=== PATIENT | female | born 1985 | race Caucasian/White ===

== ENCOUNTER 2020-03-26 11:13 | Emergency (ER) | payer BC, OTHER ==
--- NOTE | 2020-03-26 12:36 | EDM.PDOC ---
ED HPI GENERAL MEDICAL PROBLEM - General Chief Complaint: Gastrointestinal Problem Stated Complaint: SICK TO STOMACH Time Seen by Provider: 03/26/20 11:47 Source of Information: Reports: Patient History Limitations: Reports: No Limitations - History of Present Illness INITIAL COMMENTS - FREE TEXT/NARRATIVE: Patient is a 34-year-old female who is G5, P3, 27 weeks and 5 days gestation, who presents to the emergency department with complaints of feeling "queasy "and having intermittent abdominal cramping and diarrhea for the last week. She states she has had symptoms similar to this off and on throughout her , however over the last week it has worsened. She states that anytime she eats, approximate 45 minutes later she will have abdominal cramping followed by a large loose bowel movement. After she has a bowel movement she "feels great ". She states that she has been more gassy than normal and belches frequently. She has not had any vomiting, however states that any pressure on her abdomen makes her feel nauseous. This is also been fairly consistent through her but somewhat worse over the last week. She denies any abdominal pain, fever, or chills. She also complains of itching to the palms of her hands and soles of her feet, however has no rash to the area. Patient's HEEL BREASTER is in [place]. She states that she called and spoke with her and they recommended that she come to the ER. She states they were concerned that it could be her gallbladder or her liver causing the symptoms. She plans to return to [place] next week, h hernando states that she could return sooner if needed. She has had no uterine cramping or vaginal bleeding, or abnormal discharge. Denies burning with urination. activity has been normal. Patient states that she does have a history of anemia. She had a miscarriage back in August and got for shortly thereafter. States that her hemoglobin at one time was 7.1. She has not seen her HEEL BREASTER for 11 weeks due to the COVID pandemic, however in her last visit was 11. She has been unable to take a vitamin or iron supplements consistently due to intolerance. She states that she feels that her hemoglobin is probably little low as she has been more tired lately. Feet Pain Score (Numeric/FACES): 3 - Related Data Allergies Allergy/AdvReac Type Severity Reaction Status Date / Time No Known Allergies Allergy Verified 03/26/20 11:22 Home Meds: Home Meds Iron 1 tab PO DAILY 03/26/20 [History] Vits #93/Iron Fum/FA [ Formula Tablet] 1 tab PO DAILY 03/26/20 [History] Past Medical History HEENT History: Reports: Impaired Vision Cardiovascular History: Reports: None Respiratory History: Reports: None Gastrointestinal History: Reports: None Genitourinary History: Reports: None HEEL BREASTER History: Reports: Other HEEL BREASTER History: 27w 5d Musculoskeletal History: Reports: None Neurological History: Reports: None Psychiatric History: Reports: None Endocrine/Metabolic History: Reports: None Hematologic History: Reports: None Immunologic History: Reports: None Oncologic (Cancer) History: Reports: None Dermatologic History: Reports: None - Infectious Disease History Infectious Disease History: Reports: None - Past Surgical History Head Surgeries/Procedures: Reports: None HEENT Surgical History: Reports: Oral Surgery GI Surgical History: Reports: None Social & Family History - Family History HEENT: Reports: None Cardiac: Reports: None Respiratory: Reports: None GI: Reports: None : Reports: None OBGYN: Reports: None Musculoskeletal: Reports: None Neurological: Reports: None Psychiatric: Reports: Depression Endocrine/Metabolic: Reports: Diabetes, type II Hematologic: Reports: None Immunologic: Reports: None Oncologic: Reports: Leukemia, Skin - Tobacco Use Smoking Status *Q: Never Smoker - Caffeine Use Caffeine Use: Reports: Coffee, Soda - Recreational Drug Use Recreational Drug Use: No ED ROS GENERAL - Review of Systems Review Of Systems: See Below Constitutional: Reports: Fatigue. Denies: Fever, Chills, Weakness, Decreased Appetite HEENT: Reports: No Symptoms ED EXAM, GI/ABD - Physical Exam Exam: See Below Exam Limited By: No Limitations General Appearance: Alert, WD/WN, No Apparent Distress Respiratory/Chest: No Respiratory Distress, Lungs Clear, Normal Breath Sounds, No Accessory Muscle Use, Chest Non-Tender Cardiovascular: Normal Peripheral Pulses, Regular Rate, Rhythm, No Edema, No Gallop, No JVD, No Murmur, No Rub GI/Abdominal Exam: Normal Bowel Sounds, Soft, Non-Tender, No Organomegaly, No Distention, No Abnormal Bruit, No Mass, Pelvis Stable (Female) Exam: Fundal Height (U-2), Other (FHT 140) Neurological: Alert, Oriented, CN II-XII Intact, Normal Cognition, Normal Gait, Normal Reflexes, No Motor/Sensory Deficits Psychiatric: Normal Affect, Normal Mood Skin Exam: Warm, Dry, Intact, Normal Color, No Rash Course - Vital Signs Last Recorded V/S: Last Vital Signs Temp 97.7 F 03/26/20 11:22 Pulse 101 H 03/26/20 11:22 Resp 16 03/26/20 11:22 BP 134/89 03/26/20 11:22 Pulse Ox 98 03/26/20 11:22 - Orders/Labs/Meds Orders: Active Orders 24 hr Category Date Time Status Heart Tones [RC] ASDIRECTED Care 03/26/20 15:13 Active Labs: Laboratory Tests 03/26/20 03/26/20 03/26/20 Range/Units 12:14 12:14 12:25 WBC 7.68 (3.98-10.04) K/mm3 RBC 3.69 L (3.98-5.22) M/mm3 Hgb 10.6 L (11.2-15.7) gm/dl Hct 33.1 L (34.1-44.9) % MCV 89.7 (79.4-94.8) fl MCH 28.7 (25.6-32.2) pg MCHC 32.0 L (32.2-35.5) g/dl RDW Std Deviation 46.9 H (36.4-46.3) fL Plt Count 222 (182-369) K/mm3 MPV 10.1 (9.4-12.3) fl Neut % (Auto) 73.7 H (34.0-71.1) % Lymph % (Auto) 18.2 L (19.3-51.7) % [place] % (Auto) 7.4 (4.7-12.5) % Eos % (Auto) 0.3 L (0.7-5.8) Baso % (Auto) 0.1 (0.1-1.2) % Neut # (Auto) 5.66 (1.56-6.13) K/mm3 Lymph # (Auto) 1.40 (1.18-3.74) K/mm3 [place] # (Auto) 0.57 H (0.24-0.36) K/mm3 Eos # (Auto) 0.02 L (0.04-0.36) K/mm3 Baso # (Auto) 0.01 (0.01-0.08) K/mm3 Sodium 137 (136-145) mEq/L Potassium 3.5 (3.5-5.1) mEq/L Chloride 103 (98-107) mEq/L Carbon Dioxide 22 (21-32) mEq/L Anion Gap 15.5 H (5-15) BUN 6 L (7-18) mg/dL Creatinine 0.6 (0.55-1.02) mg/dL Est Cr Clr Drug Dosing 117.76 mL/min Estimated GFR (MDRD) > 60 (>60) mL/min BUN/Creatinine Ratio 10.0 L (14-18) Glucose 95 (74-106) mg/dL Calcium 8.3 L (8.5-10.1) mg/dL Total Bilirubin 0.3 (0.2-1.0) mg/dL AST 21 (15-37) U/L ALT 31 (14-59) U/L Alkaline Phosphatase 80 (46-116) U/L C-Reactive Protein 1.4 H* (<1.0) mg/dL Total Protein 6.8 (6.4-8.2) g/dl Albumin 2.8 L (3.4-5.0) g/dl Globulin 4.0 gm/dL Albumin/Globulin Ratio 0.7 L (1-2) Amylase 37 (25-115) U/L Lipase 84 (73-393) U/L Urine Color Light yellow (Yellow) Urine Appearance Clear (Clear) Urine pH 6.0 (5.0-8.0) Ur Specific [place] 1.020 (1.005-1.030) Urine Protein Negative (Negative) Urine Glucose (UA) Negative (Negative) Urine Ketones Negative (Negative) Urine Occult Blood Negative (Negative) Urine Nitrite Negative (Negative) Urine Bilirubin Negative (Negative) Urine Urobilinogen 0.2 (0.2-1.0) Ur Leukocyte Esterase Negative (Negative) Urine RBC Not seen (0-5) /hpf Urine WBC 0-5 (0-5) /hpf Ur Squamous Epith Cells 0-5 (0-5) /hpf Urine Bacteria Rare (FEW) /hpf Urine Mucus Not seen (FEW) /hpf - Re-Assessments/Exams Free Text/Narrative Re-Assessment/Exam: 03/26/20 13:50 Patient's hematology was grossly unremarkable with the exception of her hemoglobin being low at 10.6. Urinalysis was negative for infection. Liver enzymes were normal, amylase lipase and alk phos were normal. My suspicion is low that this is related to her gallbladder or liver, however to set the patient's mind at ease we will complete a ultrasound of the right upper quadrant. 03/26/20 15:00 Ultrasound of the right upper quadrant was found to be normal. There is no signs of cholecystitis or liver abnormalities. Discussed these findings with the patient. Recommend that she try using an [id number] anti-gas medication such as simethicone. Be mindful of what foods tend to aggravate her symptoms. Recommend she follow-up with her HEEL BREASTER when she gets back to [place]. Return to the ER as needed. Discharge instructions as documented. Departure - Departure Time of Disposition: 15:05 Disposition: Home, Self-Care 01 Condition: Good Clinical Impression: Abdominal bloating with cramps - Discharge Information *PRESCRIPTION DRUG MONITORING PROGRAM REVIEWED*: No *COPY OF PRESCRIPTION DRUG MONITORING REPORT IN PATIENT GINGER: No Instructions: Abdominal Pain During , [id number] Referrals: PCP,Not In Area [Primary Care Provider] - Forms: ED Department Discharge Additional Instructions: You were seen in the emergency department today for a one-week history of abdominal cramping with loose stools after eating, as well as a generalized feeling of "queasiness ". Blood work, urinalysis, and an ultrasound of your right upper abdomen was completed. This was all found to be overall normal, however hemoglobin was slightly low at 10.6. I would recommend that you be mindful of any foods that seem to aggravate your symptoms worse than others. You may attempt to use an gfzq-ygo-cwojuss gas relief medication such as simethicone to help with the bloating and belching. Recommend that you follow- up with your HEEL BREASTER at her next available appointment. If you should experience any new or worsening symptoms of concern, please not hesitate to return to the emergency department. Sepsis Event Note (ED) - Evaluation Sepsis Screening Result: No Definite Risk - My Orders Last 24 Hours: My Active Orders 03/26/20 15:13 Heart Tones [RC] ASDIRECTED - Assessment/Plan Last 24 Hours: My Active Orders 03/26/20 15:13 Heart Tones [RC] ASDIRECTED
--- NOTE | 2020-03-28 10:16 | US ---
Limited abdominal ultrasound: Multiple real-time images were obtained of the upper right abdomen. Comparison: No prior abdominal imaging is available. Liver contains no focal parenchymal abnormality. Gallbladder contains no shadowing gallstones. No gallbladder wall thickening or biliary duct dilatation is seen. Right kidney shows slight hydronephrosis. This most likely represents hydronephrosis of . Right kidney has a length of 12.1 cm. Pancreas is mostly obscured from bowel gas. Inferior vena cava is patent. Main portal vein shows normal hepatopedal flow. Impression: 1. Probable hydronephrosis of . 2. Nonvisualized pancreas due to bowel gas. 3. No additional abnormality is identified on right upper quadrant abdominal ultrasound. Diagnostic code #2 This report was dictated in MDT I agree with preliminary report from maría elena, finalized on 03/26/20, 3:44 PM Central Daylight Time
== END 2020-03-26 15:29 | disposition home or self-care (01) ==
LOC: JD.ED 11:13
DX: O99.89 Other specified diseases and conditions complicating pregnancy, childbirth and the puerperium (principal); R14.0 Abdominal distension (gaseous); Z79.899 Other long term (current) drug therapy; Z3A.27 27 weeks gestation of pregnancy
CPT/HCPCS: 36415; 76705; 76705-26; 80053; 81001; 82140; 82150; 83690; 85025; 86140; 99282; 99284-25